=== PATIENT | female | born 1930 | race Caucasian/White ===

== ENCOUNTER 2021-04-06 08:01 | Emergency (ER) | payer MEDICARE, OTHER ==
[2021-04-06 08:09] LABS: Glucose,Whole Blood 44 mg/dL (75-99)
[2021-04-06] MEDS ORDERED: DEXTROSE 50% SYRINGE 50 ML IVP STA (08:11)
--- NOTE | 2021-04-06 08:43 | ED ---
Recheck HPI - General Chief Complaint: Recheck/Abnormal Lab/Rx Stated Complaint: low blood sugar Time Seen by Provider: 04/06/21 08:03 Source: EMS Mode of arrival: EMS Limitations: no limitations - History of Present Illness Initial Comments: A 89-year-old female presents emergency department today for chief complaint of low blood glucose. Patient states that she felt fatigued and like she couldn't talk and took her blood sugar and it was "very low" she states this was last night. Pt states that she took her oral blood glucose medications even though it was low. pt states this morning she felt off took her sugar and it was low. pt denies weakness, sensation deficits, vision changes, nausea, vomiting, headaches or fall. Denies fevers, cough, chest pain/pressure or dyspnea. Patient has no additional concerns. - Related Data Home Medications Medication Instructions Recorded Confirmed Dorzolamide 2% [Trusopt 2%] 1 drop BOTH EYES BID 04/06/21 04/06/21 Isosorbide Mononitrate ER [Imdur] 30 mg PO DAILY 04/06/21 04/06/21 Latanoprost/Pf [Latanoprost 0.005% 1 drop BOTH EYES HS 04/06/21 04/06/21 Eye Drop] Levothyroxine Sodium [Synthroid] 100 mcg PO DAILY 04/06/21 04/06/21 Metoprolol Tartrate [Lopressor] 25 mg PO BID 04/06/21 04/06/21 Omeprazole [PriLOSEC] 20 mg PO BID 04/06/21 04/06/21 Tamsulosin HCl [Flomax] 0.4 mg PO DAILY 04/06/21 04/06/21 amLODIPine [Norvasc] 5 mg PO DAILY 04/06/21 04/06/21 glyBURIDE,MICRONIZED [Glyburide 6 mg PO BID 04/06/21 04/06/21 Micronized] traMADol-ACETAMINOP 37.5-325MG 1 tab PO TID 04/06/21 04/06/21 [Ultracet] Allergies Allergy/AdvReac Type Severity Reaction Status Date / Time No Known Allergies Allergy Verified 04/06/21 09:46 Review of Systems ROS Statement: Those systems with pertinent positive or pertinent negative responses have been documented in the HPI. ROS Other: All systems not noted in ROS Statement are negative. Past Medical History Past Medical History: Diabetes Mellitus Past Surgical History: Unable to Obtain Past Psychological History: No Psychological Hx Reported Smoking Status: Never smoker Past Alcohol Use History: None Reported Past Drug Use History: None Reported General Exam - General Exam Comments Initial Comments: General: The patient is awake and alert, in no distress Eye: +3 mm pupils are equal, round and reactive to light, extra-ocular movem ents are intact. No nystagmus. There is normal conjunctiva bilaterally. No signs of icterus. Ears, nose, mouth and throat: There are moist mucous membranes and no oral l esions. Neck: The neck is supple, there is no tenderness or JVD. Cardiovascular: There is a regular rate and rhythm. No murmur, rub or gallop is appreciated. Respiratory: Lungs are clear to auscultation, respirations are non-labored, breath sounds are equal. No wheezes, stridor, rales, or rhonchi. Gastrointestinal: Soft, non-distended, non-tender abdomen without masses or organomegaly noted. There is no rebound or guarding present. Musculoskeletal: Normal ROM, no tenderness. Strength 5/5. Sensation intact. Radial pulses equal bilaterally 2+. Neurological: A&O x 3. CN II-XII intact, There are no obvious motor or sensory deficits. Coordination appears grossly intact. Speech is normal. Skin: Skin is warm and dry and no rashes or lesions are noted. Psychiatric: Cooperative, appropriate mood & affect, normal judgment. Limitations: no limitations Course Vital Signs 04/06/21 04/06/21 04/06/21 08:05 11:01 13:06 Temperature 98.7 F 98.3 F Pulse Rate 89 89 82 Respiratory 16 16 18 Rate Blood Pressure 144/83 116/72 118/69 O2 Sat by Pulse 96 99 97 Oximetry Medical Decision Making - Medical Decision Making 89-year-old. Presents for low glucose levels. I believe this is medication induced. Patient denies any symptoms. Aside from fatigue and lethargy and initially changes in speech. Glucose normalized. remaining elevated. pt monitored. discussed case with Dr Chung who is agreeable to care plan and discharge. family is bedside can monitor patient is to take glucose q2h. - Lab Data Result diagrams: 04/06/21 08:16 04/06/21 08:16 Lab Results 05/11/1504/06/21 04/06/21 Range/Units 08:06 08:16 08:16 WBC 5.5 (3.8-10.6) k/uL RBC 4.48 (3.80-5.40) m/uL Hgb 13.7 (11.4-16.0) gm/dL Hct 44.1 (34.0-46.0) % MCV 98.6 (80.0-100.0) fL MCH 30.6 (25.0-35.0) pg MCHC 31.1 (31.0-37.0) g/dL RDW 13.4 (11.5-15.5) % Plt Count 146 L (150-450) k/uL MPV 10.3 Neutrophils % 85 % Lymphocytes % 11 % Monocytes % 4 % Eosinophils % 0 % Basophils % 0 % Neutrophils # 4.6 (1.3-7.7) k/uL Lymphocytes # 0.6 L (1.0-4.8) k/uL Monocytes # 0.2 (0-1.0) k/uL Eosinophils # 0.0 (0-0.7) k/uL Basophils # 0.0 (0-0.2) k/uL Sodium 138 (137-145) mmol/L Potassium 4.6 (3.5-5.1) mmol/L Chloride 105 (98-107) mmol/L Carbon Dioxide 24 (22-30) mmol/L Anion Gap 9 mmol/L BUN 17 (7-17) mg/dL Creatinine 0.59 (0.52-1.04) mg/dL Est GFR (CKD-EPI)AfAm >90 (>60 ml/min/1.73 sqM) Est GFR (CKD-EPI)NonAf 82 (>60 ml/min/1.73 sqM) Glucose 341 H (74-99) mg/dL POC Glucose (mg/dL) 44 L (75-99) mg/dL POC Glu Banking Teacher ID Boo, Mallorie Calcium 8.2 L (8.4-10.2) mg/dL Magnesium 1.8 (1.6-2.3) mg/dL Total Bilirubin 0.3 (0.2-1.3) mg/dL AST 26 (14-36) U/L ALT 17 (4-34) U/L Alkaline Phosphatase 69 (38-126) U/L Troponin I (0.000-0.034) ng/mL Total Protein 6.2 L (6.3-8.2) g/dL Albumin 3.5 (3.5-5.0) g/dL 04/06/21 04/06/21 04/06/21 Range/Units 08:16 08:36 09:08 WBC (3.8-10.6) k/uL RBC (3.80-5.40) m/uL Hgb (11.4-16.0) gm/dL Hct (34.0-46.0) % MCV (80.0-100.0) fL MCH (25.0-35.0) pg MCHC (31.0-37.0) g/dL RDW (11.5-15.5) % Plt Count (150-450) k/uL MPV Neutrophils % % Lymphocytes % % Monocytes % % Eosinophils % % Basophils % % Neutrophils # (1.3-7.7) k/uL Lymphocytes # (1.0-4.8) k/uL Monocytes # (0-1.0) k/uL Eosinophils # (0-0.7) k/uL Basophils # (0-0.2) k/uL Sodium (137-145) mmol/L Potassium (3.5-5.1) mmol/L Chloride (98-107) mmol/L Carbon Dioxide (22-30) mmol/L Anion Gap mmol/L BUN (7-17) mg/dL Creatinine (0.52-1.04) mg/dL Est GFR (CKD-EPI)AfAm (>60 ml/min/1.73 sqM) Est GFR (CKD-EPI)NonAf (>60 ml/min/1.73 sqM) Glucose (74-99) mg/dL POC Glucose (mg/dL) 164 H 175 H (75-99) mg/dL POC Glu Banking Teacher ID Wiseheart, Marina Wiseheart, Marina Calcium (8.4-10.2) mg/dL Magnesium (1.6-2.3) mg/dL Total Bilirubin (0.2-1.3) mg/dL AST (14-36) U/L ALT (4-34) U/L Alkaline Phosphatase (38-126) U/L Troponin I <0.012 (0.000-0.034) ng/mL Total Protein (6.3-8.2) g/dL Albumin (3.5-5.0) g/dL 04/06/21 Range/Units 11:00 WBC (3.8-10.6) k/uL RBC (3.80-5.40) m/uL Hgb (11.4-16.0) gm/dL Hct (34.0-46.0) % MCV (80.0-100.0) fL MCH (25.0-35.0) pg MCHC (31.0-37.0) g/dL RDW (11.5-15.5) % Plt Count (150-450) k/uL MPV Neutrophils % % Lymphocytes % % Monocytes % % Eosinophils % % Basophils % % Neutrophils # (1.3-7.7) k/uL Lymphocytes # (1.0-4.8) k/uL Monocytes # (0-1.0) k/uL Eosinophils # (0-0.7) k/uL Basophils # (0-0.2) k/uL Sodium (137-145) mmol/L Potassium (3.5-5.1) mmol/L Chloride (98-107) mmol/L Carbon Dioxide (22-30) mmol/L Anion Gap mmol/L BUN (7-17) mg/dL Creatinine (0.52-1.04) mg/dL Est GFR (CKD-EPI)AfAm (>60 ml/min/1.73 sqM) Est GFR (CKD-EPI)NonAf (>60 ml/min/1.73 sqM) Glucose (74-99) mg/dL POC Glucose (mg/dL) 174 H (75-99) mg/dL POC Glu Banking Teacher ID Wiseheart, Marina Calcium (8.4-10.2) mg/dL Magnesium (1.6-2.3) mg/dL Total Bilirubin (0.2-1.3) mg/dL AST (14-36) U/L ALT (4-34) U/L Alkaline Phosphatase (38-126) U/L Troponin I (0.000-0.034) ng/mL Total Protein (6.3-8.2) g/dL Albumin (3.5-5.0) g/dL Disposition Clinical Impression: Hypoglycemia Disposition: HOME SELF-CARE Condition: Good Instructions (If sedation given, give patient instructions): Hypoglycemia in a Person with Diabetes (ED) Additional Instructions: Please use medication as discussed. Please follow-up with family doctor in the next 2 days. CHECK SUGARS EVERY 2 HOURS TODAY-return to ER for low glucose levels. Skip medications for diabetes until follow-up with primary care provider. Please return to emergency room if the symptoms increase or worsen or for any other concerns. Is patient prescribed a controlled substance at d/c from ED?: No Referrals: Trevor Trinidad MD [Primary Care Provider] - 1-2 days Time of Disposition: 11:24
[2021-04-06 08:45] LABS: Basophils % (A) 0 %; Eosinophils % (A) 0 %; HCT 44.1 % (34.0-46.0); HGB 13.7 gm/dL (11.4-16.0); Lymphocytes # (A) 0.6 k/uL (1.0-4.8); Lymphocytes % (A) 11 %; MCH 30.6 pg (25.0-35.0); MCHC 31.1 g/dL (31.0-37.0); MCV 98.6 fL (80.0-100.0); Mean Platelet Volume 10.3; Monocytes # (A) 0.2 k/uL (0-1.0); Monocytes % (A) 4 %; Neutrophils # (A) 4.6 k/uL (1.3-7.7); Neutrophils % (A) 85 %; Platelet Count 146 k/uL (150-450); RBC 4.48 m/uL (3.80-5.40); RDW 13.4 % (11.5-15.5); WBC 5.5 k/uL (3.8-10.6)
[2021-04-06 08:48] LABS: Glucose,Whole Blood 164 mg/dL (75-99)
[2021-04-06 08:55] LABS: ALT 17 U/L (4-34); AST 26 U/L (14-36); African American GFR (CKD) >90 (>60 ml/min/1.73 sqM); Albumin 3.5 g/dL (3.5-5.0); Alkaline Phosphatase 69 U/L (38-126); Anion Gap 9 mmol/L; Blood Urea Nitrogen 17 mg/dL (7-17); Calcium 8.2 mg/dL (8.4-10.2); Carbon Dioxide 24 mmol/L (22-30); Chloride 105 mmol/L (98-107); Glucose 341 mg/dL (74-99); Magnesium 1.8 mg/dL (1.6-2.3); Non-African American GFR(CKD) 82 (>60 ml/min/1.73 sqM); Potassium 4.6 mmol/L (3.5-5.1); Sodium 138 mmol/L (137-145); Total Bilirubin 0.3 mg/dL (0.2-1.3); Total Protein 6.2 g/dL (6.3-8.2)
[2021-04-06 09:19] LABS: Glucose,Whole Blood 175 mg/dL (75-99)
[2021-04-06 11:12] LABS: Glucose,Whole Blood 174 mg/dL (75-99)
[2021-04-06 13:07] VITALS: BP 118/69; PULSE 82; RESP 18; TEMP 98.3
== END 2021-04-06 13:07 | disposition home or self-care (01) ==
LOC: EC 08:01
DX: E11.649 Type 2 diabetes mellitus with hypoglycemia without coma (principal); Z79.84 Long term (current) use of oral hypoglycemic drugs
CPT/HCPCS: 36415; 80053; 83735; 84484; 85025; 93005; 99284